=== PATIENT | female | born 1980 | race Caucasian/White ===

== ENCOUNTER 2020-10-21 21:27 | Emergency (ER) | payer OTHER ==
[~2020-10-21] VITALS: Ht 162.6 cm; Wt 86.4 kg
[2020-10-21] MEDS ORDERED: MAXA10TA14 PO (21:50)
[2020-10-21 23:16] LABS: BASO # 0.1 10^3/uL (0.0-0.2); BASO % 0.6 % (0.0-1.0); EOS # 0.2 10^3/uL (0.0-0.5); EOS % 1.9 % (0.0-3.0); HEMATOCRIT 37.8 % (36.0-47.0); HEMOGLOBIN 12.2 g/dl (12.0-15.5); LYMPH % 27.9 % (24.0-44.0); MEAN CORPUSCULAR HEMOGLOBIN 30.3 pg (27.0-33.0); MEAN CORPUSCULAR HGB CONC 32.3 g/dl (32.0-36.5); MEAN CORPUSCULAR VOLUME 93.8 fl (80.0-96.0); MONO # 1.1 10^3/uL (0.0-0.8); MONO % 10.2 % (2.0-8.0); NEUTROPHILS # 6.4 10^3/uL (1.5-8.5); NEUTROPHILS % 59.1 % (36.0-66.0); PLATELET COUNT, AUTOMATED 262 10^3/uL (150-450); RED BLOOD COUNT 4.03 10^6/uL (4.00-5.40); WHITE BLOOD COUNT 10.8 10^3/uL (4.0-10.0)
[2020-10-21 23:49] LABS: ALBUMIN 3.6 GM/DL (3.2-5.2); ALT/SGPT 21 U/L (12-78); BILIRUBIN,DIRECT 0.1 MG/DL (0.0-0.2); BILIRUBIN,TOTAL 0.3 MG/DL (0.2-1.0); BLOOD UREA NITROGEN 10 MG/DL (7-18); CALCIUM LEVEL 8.9 MG/DL (8.5-10.1); CARBON DIOXIDE LEVEL 32 MEQ/L (21-32); CHLORIDE LEVEL 108 MEQ/L (98-107); CREATININE FOR GFR 0.64 MG/DL (0.55-1.30); GLOMERULAR FILTRATION RATE > 60.0 (>58); GLUCOSE, FASTING 77 MG/DL (70-100); LIPASE 123 U/L (73-393); POTASSIUM SERUM 4.3 MEQ/L (3.5-5.1); SODIUM LEVEL 141 MEQ/L (136-145); TOTAL PROTEIN 6.7 GM/DL (6.4-8.2)
[2020-10-22 00:18] LABS: HCG, SERUM QUALITATIVE NEGATIVE (NEGATIVE)
[2020-10-22] MEDS ORDERED: KETOROLAC 30 MG/ML 1ML VIAL IV ONE (06:40)
[2020-10-22] MEDS ORDERED: ISOVUE-370 76% 100ML VIAL As Ordered ONE (06:46)
--- NOTE | 2020-10-22 08:27 | REPVR ---
PROCEDURE INFORMATION: Exam: CT Abdomen And Pelvis With Contrast Exam date and time: 10/22/2020 6:38 AM Age: 39 years old Clinical indication: Abdominal pain; Localized; Right; Additional info: Right sided abd pain TECHNIQUE: Imaging protocol: Computed tomography of the abdomen and pelvis with contrast. Radiation optimization: All CT scans at this facility use at least one of these dose optimization techniques: automated exposure control; mA and/or kV adjustment per patient size (includes targeted exams where dose is matched to clinical indication); or iterative reconstruction. Contrast material: ISO; Contrast volume: 100 ml; Contrast route: INTRAVENOUS (IV); COMPARISON: No relevant prior studies available. FINDINGS: Lungs: Small subsegmental pulmonary atelectases are seen in both lung bases. Heart: No significant abnormality. Liver: Mild diffuse fatty infiltration of the liver is present. No mass. Gallbladder and bile ducts: Normal. No calcified stones. The biliary ducts appear normal. Pancreas: Normal. No dilatation of the main pancreatic duct. Spleen: Normal. No splenomegaly. Adrenal glands: Normal. No mass. Kidneys and ureters: A small 7.1 mm intrarenal calcification is present in the upper pole of the left kidney. No hydronephrosis. Stomach and bowel: There is an area of questionable inflammatory change present in the omental fat anterolateral to the hepatic flexure of the large bowel, seen on images 55 through 67 of series 201. A questionable small tubular structure is seen lateral to the hepatic flexure on images 56 and 57 of series 201. This might represent an epiploic appendage or simply small parallel-tracking vessels in the omentum. Epiploic appendagitis versus an omental infarct is the differential diagnosis. No evidence of colonic diverticulitis. There is a moderate amount of liquid stool present in the large bowel extending from the mid-ascending colon through the transverse colon and distal colon down to the rectosigmoid colon. No large bowel obstruction. No mucosal thickening to strongly suggest an acute colitis. No free intraperitoneal air or free fluid. Appendix: No evidence of appendicitis. The appendix appears normal in the right lower quadrant medial to the cecum on image 90 of series 201. Intraperitoneal space: Unremarkable. No free air. No significant fluid collection. Vasculature: Unremarkable. No abdominal aortic aneurysm. Lymph nodes: Unremarkable. No enlarged lymph nodes. Urinary bladder: Unremarkable as visualized. Reproductive: Unremarkable as visualized. Bones/joints: Unremarkable. No acute fracture. Soft tissues: Unremarkable. IMPRESSION: 1. There is a small area of questionable inflammatory change present in the omental fat anterolateral to the hepatic flexure of the large bowel, seen on images 55 through 67 of series 201. A questionable small tubular structure is seen lateral to the hepatic flexure on images 56 and 57 of series 201. This might represent an epiploic appendage or simply small parallel-tracking vessels in the omentum. Epiploic appendagitis versus an omental infarct is the differential diagnosis. No evidence of colonic diverticulitis. There is a moderate amount of liquid stool present in the large bowel extending from the mid-ascending colon through the transverse colon and distal colon down to the rectosigmoid colon. No large bowel obstruction. No mucosal thickening to strongly suggest an acute colitis. No free intraperitoneal air or free fluid. Recommend clinical correlation for a diarrheal component to the patient's right-sided abdominal pain. 2. No evidence of appendicitis. The appendix appears normal in the right lower quadrant medial to the cecum and posterior to the ileum on image 90 of series 201. 3. Small subsegmental pulmonary atelectases are seen in both lung bases. 4. Mild diffuse fatty infiltration of the liver is present. 5. A small 7.1 mm intrarenal calcification is present in the upper pole of the left kidney. No hydronephrosis. Electronically signed by: Mal Pelletier On 10/22/2020 08:26:48 AM
[2020-10-22] MEDS ORDERED: RA M1.74 PO (08:53)
[2020-10-22] MEDS ORDERED: IBUP80TA PO (08:53)
[2020-10-22] MEDS ORDERED: NORCO, ANEXSIA 5/325MG TABLET (HYDROcodone/ACETAMINOPHEN) PO ONE (10:30)
[2020-10-22 10:45] VITALS: BP 118/66
== END 2020-10-22 10:47 | disposition home or self-care (01) ==
LOC: M ED 21:27
DX: K65.9 Peritonitis, unspecified (principal); K59.00 Constipation, unspecified; J98.11 Atelectasis; K76.0 Fatty (change of) liver, not elsewhere classified; G43.909 Migraine, unspecified, not intractable, without status migrainosus
CPT/HCPCS: 74177; 80048; 80076; 81001; 83690; 84703; 85025; 96374; 99284; J1885; Q9967

== ENCOUNTER → 2022-07-12 | Outpatient (CLI) | payer OTHER ==
[~2022-07-12] MED LIST: IBUP80TA PO; RA M1.74 PO; RIZA10TA64 PO
== END ==
LOC: M SLEEP HO 11:21
PROVIDERS: ATTEND Family Medicine
DX: R06.83 Snoring (principal)